=== PATIENT | male | born 1980 ===

== ENCOUNTER 2024-11-27 11:02 | Emergency (ER) | payer OTHER ==
[~2024-11-27] VITALS: Ht 190.5 cm; Wt 90.7 kg
[2024-11-27] MEDS ORDERED: Ketorolac Tromethamine 15mg Vial IV ONE (11:30)
[2024-11-27] MEDS ORDERED: NS 1,000 ML IV SCH (11:30)
[2024-11-27] MEDS ORDERED: CeFAZolin Sodium 2,000 MG in NS 100 ML IV ONE (12:25)
[2024-11-27 12:40] LABS: Albumin, Blood 3.6 g/dL (3.4-5.0); Albumin/Globulin Ratio 0.7 (0.8-1.8); Bilirubin, Total 0.9 mg/dL (0.1-1.0); Bun/Creatinine Ratio 22.7 (12.0-20.0); Calcium, Blood 9.1 mg/dL (8.5-10.1); Creatinine, Blood 0.93 mg/dL (0.60-1.20); Potassium, Blood 3.8 mmol/L (3.5-5.5); Total Protein, Blood 8.6 g/dL (6.4-8.2)
[2024-11-27 12:42] LABS: BASOPHILS ABSOLUTE AUTO 0.08 K/mm3 (0.00-0.23); BASOPHILS PERCENT AUTO 1 % (0-2); EOSINOPHILS PERCENT AUTO 0 % (0-6); Hematocrit 37.7 % (37.0-53.0); Hemoglobin 13.2 g/dL (13.5-17.5); IMMATURE GRAN ABSOLUTE AUTO 0.12 K/mm3 (0.00-0.10); IMMATURE GRAN PERCENT AUTO 1 % (0-1); LYMPHOCYTES ABSOLUTE AUTO 2.15 K/mm3 (0.84-5.20); LYMPHOCYTES PERCENT AUTO 13 % (21-46); MONOCYTES ABSOLUTE AUTO 1.08 K/mm3 (0.16-1.47); MONOCYTES PERCENT AUTO 7 % (4-13); Mean Corpuscular HGB 32.5 pg (26.0-34.0); Mean Corpuscular Volume 93 fL (80-100); Mean Platelet Volume 9.2 fL (9.1-12.4); NEUTROPHILS ABSOLUTE AUTO 12.67 K/mm3 (1.96-9.15); NEUTROPHILS PERCENT AUTO 79 % (41-73); Platelet Count 360 K/mm3 (150-400); RDW Coefficient Variation 12.4 % (11.7-14.2); RDW Standard Deviation 42.7 fL (35.1-46.3); Red Blood Cell Count 4.06 M/mm3 (4.30-5.90)
[2024-11-27] MEDS ORDERED: Ondansetron HCl 2 MG / ML 2ML Vial IV ONE ×2 (13:25)
[2024-11-27] MEDS ORDERED: Cephalexin500 MG PO (13:48)
[2024-11-27] MEDS ORDERED: SULTRIDS PO (13:48)
[2024-11-27] MEDS ORDERED: IBUP800 PO (13:48)
[2024-11-27] MEDS ORDERED: Cephalexin Monohydrate 500 MG Cap PO ONE (14:05)
[2024-11-27] MEDS ORDERED: Trimethoprim/Sulfamethoxazole DS Tab PO ONE (14:05)
== END 2024-11-27 14:32 | disposition home or self-care (01) ==
LOC: ER 11:02
PROVIDERS: Student in an Organized Health Care Education/Training Program
DX: L03.031 Cellulitis of right toe (principal); I10 Essential (primary) hypertension; J45.909 Unspecified asthma, uncomplicated
CPT/HCPCS: 73630; 80053; 85025; 85651; 86140; 96374; 96375; 99283-25; A9270; J0690; J1885; J2405; J7030

== ENCOUNTER 2025-03-29 22:55 | Emergency (ER) | payer OTHER ==
[~2025-03-29] VITALS: Ht 188 cm; Wt 90.7 kg
[~2025-03-29 22:55] MED LIST: Cephalexin500 MG PO; IBUP800 PO; SULTRIDS PO
[2025-03-29] MEDS ORDERED: Trimethoprim/Sulfamethoxazole DS Tab PO ONE (23:10)
[2025-03-29] MEDS ORDERED: Bactrim Ds Tab1 EACH PO (23:11)
[2025-03-29] MEDS ORDERED: Norvasc5 MG PO (23:11)
== END 2025-03-29 23:41 | disposition home or self-care (01) ==
LOC: ER 22:55
DX: L03.119 Cellulitis of unspecified part of limb (principal); L02.419 Cutaneous abscess of limb, unspecified; I10 Essential (primary) hypertension; Z76.0 Encounter for issue of repeat prescription
CPT/HCPCS: 99283; A9270